=== PATIENT | female | born 1945 | race Two or more races ===

== ENCOUNTER 2020-09-24 06:18 | Day surgery (SDC) | payer OTHER ==
[~2020-09-24 06:18] MED LIST: GABAPEN PO; LEVOXYL75 MCG PO; LEVOXYL88 MCG PO; MELATONINA; PEPCID PO; PROTONIX40 M1 PO; REGLAN PO; TOPROL XL25 M1 PO; ZOCOR20 MG PO
== END 2020-09-24 19:25 | disposition home or self-care (01) ==
LOC: CIR.AMB 06:18
PROVIDERS: ATTEND Colon & Rectal Surgery
DX: D12.9 Benign neoplasm of anus and anal canal (principal); K64.8 Other hemorrhoids; Z20.822 Contact with and (suspected) exposure to COVID-19